=== PATIENT | female | born 1955 | race African-American/Black ===

== ENCOUNTER 2017-08-12 09:49 | Day surgery (SDC) | payer BC ==
[2017-08-08 12:08] VITALS: BMI 23.1
[2017-08-12] MEDS ORDERED: LIDOCAINE HCL 2% 100 MG/5 ML DISP.SYRIN ONE (10:45)
[2017-08-12] MEDS ORDERED: MIDAZOLAM HCL 2 MG/2 ML SINGLE DOSE VIAL ONE ×2 (10:45→11:42)
[2017-08-12] MEDS ORDERED: PROPOFOL 20 ML ONE (10:46)
[2017-08-12] MEDS ORDERED: oxyCODONE HCL 5 MG TABLET PO PRN ×2 (11:01)
[2017-08-12] MEDS ORDERED: ONDANSETRON 4 MG/2 ML VIAL IVPUSH PRN (11:01)
[2017-08-12] MEDS ORDERED: BACITRACIN 3.5 GM OPTHALMIC OINT TUBE ONE (11:02)
[2017-08-12] MEDS ORDERED: POVIDONE-IODINE 5% OPHTHALMIC PREP 30 ML SOLUTION ONE (11:03)
[2017-08-12] MEDS ORDERED: TETRACAINE 0.5% OPHTH SOLN 2 ML BOTTLE ONE ×2 (11:03→11:27)
[2017-08-12] MEDS ORDERED: BUPIVACAINE HCL/PF 0.5% (5MG/ML) 10 ML VIAL ONE (11:03)
[2017-08-12] MEDS ORDERED: LIDOCAINE 1%/EPI 1:100000 (20 ML MULTI DOSE VIAL) ONE (11:03)
[2017-08-12] MEDS ORDERED: LACTATED RINGERS SOLUTION 1,000 ML IV SCH (11:15)
[2017-08-12] MEDS ORDERED: ceFAZolin SODIUM 1 GM VIAL ONE (11:30)
[2017-08-12] MEDS ORDERED: SODIUM CHLORIDE 0.9% P/F 10 ML VIAL IJ ONE (11:30)
[2017-08-12 13:24] VITALS: TEMP 97.8
[2017-08-12 14:01] VITALS: BP 136/68; PULSE 58
--- NOTE | 2017-08-12 15:06 | OP ---
DATE OF OPERATION: DATE OF DICTATION: 08/12/2017 PREOPERATIVE DIAGNOSES: Epiphora, right and left. Laxity, bilateral lower lids. Nasal-punctal migration. Conjunctival chalasis, each eye. Punctal stenosis, bilateral lower lids. POSTOPERATIVE DIAGNOSES: Epiphora, right and left. Laxity, bilateral lower lids. Nasal-punctal migration. Conjunctival chalasis, each eye. Punctal stenosis, bilateral lower lids. PROCEDURES: 1. Lateral tarsal strip, right lower lid; lateral tarsal strip, left lower lid. 2. Excision of conjunctival chalasis, right; excision of conjunctival chalasis, left. 3. Punctoplasty, right lower lid; punctoplasty, left lower lid. SURGEON: Abhijit Lakhani MD ANESTHESIA: Local with sedation. COMPLICATIONS: None. ESTIMATED BLOOD LOSS: 2-3 mL. OPERATIVE REPORT: The patient was brought to the operating room and placed on the operating room table. Vital signs were monitored by Anesthesia. Tetracaine was placed in both eyes. The lateral canthal line was marked at the lateral canthus bilaterally. Timeout was performed, confirming the bilateral nature of the procedure, following which intravenous sedation was administered. A 50:50 mixture of 2% Xylocaine with 1:100,000 epinephrine and 0.5% Marcaine was administered at the lateral canthus, down to periosteum, lateral quarter of the upper and lower lid, and in the excess conjunctiva and plica in the inferonasal fornix, and medial commissure area bilaterally. Massage was applied for hemostasis. The patient was prepped and draped in the usual sterile fashion. The same procedure was performed bilaterally. The lateral canthal line was incised with a 15-blade through the skin and subcutaneous tissue. This was carried down with a Winchester needle to the orbital rim. The inferior cesar of the lateral canthal tendon was from the orbital rim with sharp dissection, allowing the lid to move freely at the lateral portion. It was overlapped at the orbital rim, marked with a sterile marking pen, and divided into an anterior and posterior lamella. The anterior lamella was excised. The posterior lamella was denuded of epithelium posteriorly, superiorly, and released, and retracted inferiorly, creating a lateral tarsal strip. The lateral tarsal strip was then reattached at the internal surface of the orbital rim, at the junction with the superior cesar and the left canthal tendon, until appropriate tension was present on the lower lid. This was reattached with double-arm, 5-0 Prolene reinforced with two 6-0 Vicryl lasso sutures. The lateral canthal angle was reformed with a buried 5-0 chromic through the lee line of the upper and lower lid. The lid was now distracted with a Desmarres retractor, and the excess conjunctiva and plica which opposed the punctum was now excised with a Kwaku scissors and cauterized with a Winchester needle, and small amounts of additional conjunctiva were removed here or there as necessary, in order to avoid contact with the punctum and remove completely the excess conjunctival chalasis. Both lower puncta were seen to be stenotic, so at this point in the operation, the lower puncta were dilated with a punctal dilator. Posterior snip was made and a small posterior portion of the wall was excised, being careful not to create a widened canaliculus, but just to create a more circumferential opening in the lower punctum. These procedures were performed bilaterally. At the end of the procedure, the Prolene was tied, reattaching the tarsal strip to the orbital rim. The excess tarsal strip was overlapped over the Prolene and tied with a single 5-0 chromic. The subcuticular muscle tissue was closed with 5-0 chromic at the lateral canthus and the skin was closed with running 6-0 plain sutures bilaterally. Antibiotic irrigation was used throughout the case. Bacitracin was placed in the eye nasally and temporally and on the sutures of the lateral canthus, and the patient was taken to the recovery room in stable condition. ABHIJIT LAKHANI M.D. [id number]
--- NOTE | 2017-08-14 16:46 | PATH ---
Surgical Pathology Report Patient Name: GABINO SALOMON [facility]. Rec. #: [id number] /Age/Gender: 1955 (Age: 61) / F Account: [id number] Location: [facility] Taken: 08/12/2017 Received: 08/12/2017 Reported: 08/14/2017 Physicians: Felipe Gupta Specimen(s) Received A: RIGHT CONJUNCTIVA B: LEFT CONJUNCTIVA Clinical History Ectropion, conjunctivocholasis both sides Final Diagnosis A. CONJUNCTIVA, RIGHT EXCISION: CONJUNCTIVAL TISSUE SHOWING MARKED CHRONIC INFLAMMATION AND FIBROSIS. B. CONJUNCTIVA, LEFT, EXCISION: CONJUNCTIVAL TISSUE SHOWING MILD CHRONIC INFLAMMATION AND FIBROSIS. Electronically Signed Ashlee Villavicencio M.D. Gross Description A. Received in formalin labeled "right conjunctiva," is a 0.6 cm greatest dimension robert soft tissue fragment. The specimen is submitted in toto in one cassette. B. Received in formalin labeled "left conjunctiva," is a 0.4 cm greatest dimension robert soft tissue fragment. The specimen is submitted in toto in one cassette. 08/13/2017 [facility]08/13/2017
== END 2017-08-12 14:25 | disposition home or self-care (01) ==
LOC: FASU 09:49
PROVIDERS: ATTEND Ophthalmology
PROC: 08BQ0ZZ Excision of Right Lower Eyelid, Open Approach (ICD-10-PCS; 2017-08-12)
PROC: 08BTXZZ Excision of Left Conjunctiva, External Approach (ICD-10-PCS; 2017-08-12)
PROC: 08BSXZZ Excision of Right Conjunctiva, External Approach (ICD-10-PCS; 2017-08-12)
PROC: 08BR0ZZ Excision of Left Lower Eyelid, Open Approach (ICD-10-PCS; principal; 2017-08-12 11:40)
DX: H04.223 Epiphora due to insufficient drainage, bilateral (principal); H02.89 Other specified disorders of eyelid; H04.563 Stenosis of bilateral lacrimal punctum; H11.823 Conjunctivochalasis, bilateral
CPT/HCPCS: 88304-TC; 94760